=== PATIENT | female | born 1955 | race Caucasian/White ===

== ENCOUNTER 2019-04-22 10:52 | Outpatient (CLI) | payer OTHER, SELFPAY ==
[2019-04-22 11:22] LABS: Hematocrit 40.8 % (37.0-47.0); Hemoglobin 12.6 g/dL (12.0-15.0); Mean Corpuscular HGB Conc 30.9 g/dl (32-36); Mean Corpuscular Hemoglobin 28.4 pg (26-34); Mean Corpuscular Volume 91.9 fl (80-100); Platelet Count Result 180 k/mm3 (150-375); Red Blood Count 4.44 M/mm3 (4.2-5.4); Red Cell Distribution Width 13.9 % (11.5-14.5); White Blood Count 6.4 K/mm3 (4.5-10.0)
[2019-04-22 11:33] LABS: Alanine Aminotransferase 23 U/L (4-35); Albumin Level 4.2 g/dL (3.5-5.1); Alkaline Phosphatase 150 U/L (38-126); Aspartate Amino Transferase 30 U/L (14-36); Bilirubin,Total 0.9 mg/dL (0.2-1.3); Blood Urea Nitrogen 10 mg/dL (7-17); Calcium 9.5 mg/dL (8.4-10.2); Carbon Dioxide 31 mmol/L (22-30); Chloride 102 mmol/L (98-107); Cholesterol 129 mg/dL (0-200); Estimated Glomerular Filt Rate 56; Glucose 107 mg/dL (65-105); HDL Direct 60 mg/dL; Potassium 4.4 mmol/L (3.4-5.0); Sodium 140 mmol/L (137-145); Triglycerides 42 mg/dL (<150)
[2019-04-22 11:44] LABS: LDL Cholesterol Direct 57 mg/dL
== END 2019-04-22 10:53 | disposition home or self-care (01) ==
PROVIDERS: PCP Family Medicine; Visit Provider Nurse Practitioner Family
DX: E78.5 Hyperlipidemia, unspecified (principal); I10 Essential (primary) hypertension
CPT/HCPCS: 36415; 80053; 80061; 85027

== ENCOUNTER 2019-04-23 07:23 | Outpatient (CLI) | payer OTHER, SELFPAY ==
[2019-04-27 05:08] LABS: GGT 11 U/L (3-65)
== END 2019-04-23 07:24 | disposition home or self-care (01) ==
PROVIDERS: PCP Family Medicine; Visit Provider Nurse Practitioner Family
DX: R74.8 Abnormal levels of other serum enzymes (principal)
CPT/HCPCS: 36415; 82977

== ENCOUNTER 2019-09-21 14:03 | Outpatient (CLI) | payer OTHER, SELFPAY ==
--- NOTE | ~2019-09-21 | MM_ITS ---
EXAMINATION: MM screening buddy BI w deonna HISTORY: Screening mammogram TECHNIQUE: Craniocaudal and mediolateral oblique 3-D tomosynthesis images were obtained and synthetic 2-D images were generated. CAD analysis was submitted and interpreted. COMPARISON: Comparison to multiple prior studies sequentially, with oldest reviewed study dated 07/2014. BREAST PARENCHYMAL COMPOSITION: The breasts are heterogeneously dense, which may obscure small masses . FINDINGS: There is no evidence of suspicious mass, calcification, or architectural distortion to sugg est malignancy in either breast. There has been no suspicious interval change. IMPRESSION: 1. No mammographic evidence of malignancy. 2. Recommend routine screening mammography in one year. BI-RADS Category 1: Negative Reviewed, dictated and finalized at location A.
== END 2019-09-21 14:04 | disposition home or self-care (01) ==
PROVIDERS: PCP Family Medicine; Visit Provider Family Medicine
DX: Z12.31 Encounter for screening mammogram for malignant neoplasm of breast (principal)
CPT/HCPCS: 77063; 77067

== ENCOUNTER 2019-10-20 15:45 | Outpatient (CLI) | payer OTHER, SELFPAY ==
[2019-10-20 16:06] LABS: Basophils Absolute Auto 0.1 K/mm3 (0.0-0.1); Eosinophils Absolute Auto 0.6 K/mm3 (0-0.3); Eosinophils Percent Auto 8.1 % (0-4.4); Hematocrit 37.8 % (37.0-47.0); Hemoglobin 11.7 g/dL (12.0-15.0); Immature Granulocyte Absolute 0.01 K/mm3 (0.00-0.031); Immature Granulocyte Percent A 0.1 % (0-0.5); Lymphocytes Absolute Auto 2.43 K/mm3 (0.9-3.2); Lymphocytes Percent Auto 35.8 % (18.3-44.2); Mean Corpuscular Hemoglobin 28.8 pg (26-34); Mean Corpuscular Volume 93.1 fl (80-100); Mean Platelet Volume 11.1 fl (7.4-10.4); Monocytes Absolute Auto 0.6 K/mm3 (0.1-0.6); Monocytes Percent Auto 8.7 % (2.6-8.5); Neutrophils Absolute Auto 3.1 K/mm3 (1.3-6.7); Neutrophils Percent Auto 46.3 % (45.5-73.1); Platelet Count Result 223 k/mm3 (150-375); Red Blood Count 4.06 M/mm3 (4.2-5.4); Red Cell Distribution Width 14.3 % (11.5-14.5); White Blood Count 6.8 K/mm3 (4.5-10.0)
[2019-10-20 16:17] LABS: Alanine Aminotransferase 20 U/L (4-35); Albumin Level 4.1 g/dL (3.5-5.1); Alkaline Phosphatase 142 U/L (38-126); Anion Gap 8.9 mmol/L (7-16); Aspartate Amino Transferase 26 U/L (14-36); Bilirubin,Total 0.5 mg/dL (0.2-1.3); Blood Urea Nitrogen 16 mg/dL (7-17); Calcium 8.9 mg/dL (8.4-10.2); Carbon Dioxide 30 mmol/L (22-30); Chloride 105 mmol/L (98-107); Cholesterol 133 mg/dL (0-200); Estimated Glomerular Filt Rate > 60; Glucose 111 mg/dL (65-105); HDL Direct 58 mg/dL; Potassium 3.9 mmol/L (3.4-5.0); Sodium 140 mmol/L (137-145); Triglycerides 82 mg/dL (<150)
[2019-10-20 16:28] LABS: LDL Cholesterol Direct 60 mg/dL
[2019-10-20 17:29] LABS: Vitamin D 25 Hydroxy 53.2 ng/mL
[2019-10-20 19:11] LABS: Hemoglobin A1C 5.3 % (<5.7)
== END 2019-10-20 15:46 | disposition home or self-care (01) ==
PROVIDERS: PCP Family Medicine; Visit Provider Nurse Practitioner
DX: I10 Essential (primary) hypertension (principal); R73.9 Hyperglycemia, unspecified; E55.9 Vitamin D deficiency, unspecified
CPT/HCPCS: 36415; 80053; 80061; 82306; 83036; 85025

== ENCOUNTER 2020-04-11 09:39 | Outpatient (CLI) | payer OTHER, SELFPAY ==
[2020-04-11 10:30] LABS: Alanine Aminotransferase 24 U/L (4-35); Albumin Level 4.3 g/dL (3.5-5.1); Alkaline Phosphatase 149 U/L (38-126); Anion Gap 4 mmol/L (8-16); Aspartate Amino Transferase 33 U/L (14-36); Bilirubin,Total 1.1 mg/dL (0.2-1.3); Blood Urea Nitrogen 12 mg/dL (7-17); Calcium 9.5 mg/dL (8.4-10.2); Carbon Dioxide 33 mmol/L (22-30); Chloride 103 mmol/L (98-107); Cholesterol 156 mg/dL (0-200); Estimated Glomerular Filt Rate 56; Glucose 121 mg/dL (65-105); HDL Direct 60 mg/dL; Potassium 4.3 mmol/L (3.4-5.0); Sodium 140 mmol/L (137-145); Triglycerides 74 mg/dL (<150)
[2020-04-11 10:41] LABS: LDL Cholesterol Direct 65 mg/dL
[2020-04-11 10:48] LABS: Hemoglobin A1C 5.3 % (<5.7)
== END 2020-04-11 09:40 | disposition home or self-care (01) ==
PROVIDERS: PCP Nurse Practitioner Family; Visit Provider Nurse Practitioner Family
DX: R73.03 Prediabetes (principal); I10 Essential (primary) hypertension; E78.5 Hyperlipidemia, unspecified
CPT/HCPCS: 36415; 80053; 80061; 83036

== ENCOUNTER 2020-04-17 08:21 | Outpatient (CLI) | payer OTHER, SELFPAY ==
--- NOTE | ~2020-04-17 | US_ITS ---
EXAMINATION: US art doppler w press LE BI DATE: 04/17/2020 09:18 INDICATION: Hypertension presenting with decreased pulses in the lower limbs. TECHNIQUE: Segmental pressures and plethysmographic and Doppler waveforms of the brachial and lower e xtremity arteries were obtained. COMPARISON: None. FINDINGS: Right and left brachial artery pressures of 115 mm Hg and 114 mm Hg, respectively, are concordant (no rmal difference <= 30 mmHg). The right and left high-thigh pressure indices are 1.75 and 1.66, respec tively (normal > 1.2). The right ankle-brachial index (WERO) is 1.24 (normal >= 0.9-1). The right great toe-brachial index (T BI) is 0.63 (normal >= 0.6-0.8). The right lower extremity segmental pressure gradients are mildly in creased between the right dorsalis pedis artery and the right [id number] popliteal artery as well as the right posterior tibial artery (normal gradients <= 20-30 mmHg between adjacent levels on the same leg or the same levels on the two legs). Arterial waveforms are triphasic at the right common fe moral and superficial femoral arteries and biphasic at the right popliteal, posterior tibial and dors darline pedis arteries with brisk systolic upstrokes throughout. The left WERO is 1.27. The left TBI is 0.76. The left lower extremity segmental pressure gradients are normal. Arterial waveforms are triphasic at the left common femoral, superficial femoral, popliteal and posterior tibial arteries and biphasic at the left dorsalis pedis artery with brisk systolic upst rokes throughout. IMPRESSION: 1. Normal WERO's and TBI's bilaterally. No significant arterial occlusive disease. Reviewed, dictated and finalized at location B. [employer] IMPRESSION: 1. Normal WERO's and TBI's bilaterally. No significant arterial occlusive diseas e.
== END 2020-04-17 08:22 | disposition home or self-care (01) ==
LOC: ANHIMG 08:26
PROVIDERS: PCP Nurse Practitioner Family; Visit Provider Nurse Practitioner Family
DX: R09.89 Other specified symptoms and signs involving the circulatory and respiratory systems (principal)
CPT/HCPCS: 93923

== ENCOUNTER 2020-10-10 08:44 | Outpatient (CLI) | payer OTHER, SELFPAY ==
[2020-10-10 09:04] LABS: Basophils Absolute Auto 0.1 K/mm3 (0.0-0.1); Basophils Percent Auto 0.7 % (0.2-1.2); Eosinophils Absolute Auto 0.4 K/mm3 (0-0.3); Eosinophils Percent Auto 6.4 % (0-4.4); Hematocrit 38.2 % (37.0-47.0); Hemoglobin 11.5 g/dL (12.0-15.0); Immature Granulocyte Absolute 0.01 K/mm3 (0.00-0.031); Immature Granulocyte Percent A 0.1 % (0-0.5); Lymphocytes Absolute Auto 1.97 K/mm3 (0.9-3.2); Lymphocytes Percent Auto 28.6 % (18.3-44.2); Mean Corpuscular HGB Conc 30.1 g/dl (32-36); Mean Corpuscular Hemoglobin 26.8 pg (26-34); Mean Platelet Volume 10.9 fl (7.4-10.4); Monocytes Absolute Auto 0.7 K/mm3 (0.1-0.6); Monocytes Percent Auto 9.9 % (2.6-8.5); Neutrophils Absolute Auto 3.8 K/mm3 (1.3-6.7); Neutrophils Percent Auto 54.3 % (45.5-73.1); Platelet Count Result 219 k/mm3 (150-375); Red Blood Count 4.29 M/mm3 (4.2-5.4); White Blood Count 6.9 K/mm3 (4.5-10.0)
[2020-10-10 09:15] LABS: Alanine Aminotransferase 19 U/L (4-35); Albumin Level 4.3 g/dL (3.5-5.1); Alkaline Phosphatase 125 U/L (38-126); Anion Gap 6 mmol/L (8-16); Aspartate Amino Transferase 26 U/L (14-36); Bilirubin,Total 0.7 mg/dL (0.2-1.3); Blood Urea Nitrogen 13 mg/dL (7-17); Calcium 9.8 mg/dL (8.4-10.2); Carbon Dioxide 30 mmol/L (22-30); Chloride 105 mmol/L (98-107); Cholesterol 141 mg/dL (0-200); Estimated Glomerular Filt Rate 56; Glucose 106 mg/dL (65-110); HDL Direct 56 mg/dL; Potassium 4.8 mmol/L (3.4-5.0); Sodium 141 mmol/L (137-145); Triglycerides 68 mg/dL (<150)
[2020-10-10 09:26] LABS: LDL Cholesterol Direct 54 mg/dL
== END 2020-10-10 08:45 | disposition home or self-care (01) ==
PROVIDERS: PCP Nurse Practitioner Family; Visit Provider Nurse Practitioner Family
DX: I10 Essential (primary) hypertension (principal); E78.5 Hyperlipidemia, unspecified
CPT/HCPCS: 36415; 80053; 80061; 85025

== ENCOUNTER 2020-10-24 08:08 | Outpatient (CLI) | payer OTHER, SELFPAY ==
[2020-10-24 09:16] LABS: Iron 83 ug/dL (37-170)
[2020-10-24 09:24] LABS: Percent Iron Saturation 19 % (20-50)
[2020-10-24 09:51] LABS: Ferritin 8.54 ng/mL (11.1-264)
== END 2020-10-24 08:09 | disposition home or self-care (01) ==
PROVIDERS: PCP Nurse Practitioner Family; Visit Provider Nurse Practitioner Family
DX: D64.9 Anemia, unspecified (principal)
CPT/HCPCS: 36415; 82728; 83540; 83550

== ENCOUNTER 2020-12-07 08:07 | Outpatient (CLI) | payer OTHER, SELFPAY ==
--- NOTE | ~2020-12-07 | DEXA_ITS ---
Bone Density Report Name: Laverne Garcia Age: 65 Sex: Female Ethnicity: White Date of : 1955 Indication: postmenopausal; height loss; hysterectomy; Referring Provider: Smitha Miller Study: Bone densitometry was performed. Exam Date: December 07, 2020 Accession number: [id number] Bone Density: Region BMD T-score Z-score Classification AP Spine (L1, L2) 1.191 1.9 3.5 Normal Femoral Neck (Left) 0.779 -0.6 0.8 Normal Total Hip (Left) 0.992 0.4 1.5 Normal Total Hip Bilateral Avg 0.956 0.1 1.2 Normal Femoral Neck (Right) 0.734 -1.0 0.4 Normal Total Hip (Right) 0.919 -0.2 0.9 Normal World Health Organization criteria for BMD impression classify patients as: Normal (T-score at or above -1.0), Osteopenia (T-score between -1.0 and -2.5), or Osteoporosis (T-score at or below -2.5). 10-year Fracture Risk: FRAX not reported because: All T-scores for Spine Total, Hip Total, Femoral Neck at or above -1.0 Clinical Information Provided by Patient: Has the following medical conditions: Hysterectomy Patient maximum height was 70 Menopause Age: 43 Does not regularly consume dairy products Drinks caffeinated beverages Onset of menses at age 14 Number of children 2 Impression: The patient has normal bone mass. Discussion: BONE DENSITY IS ABOVE THE MINIMUM DESIRABLE LEVEL AT ALL SKELETAL SITES TESTED. This patient?s bone mineral density is above the minimum desirable level (T-score -1.0 or better) at all sites measured. The patient should follow a healthful lifestyle (good nutrition with adequate calcium and vitamin D, and appropriate weight-bearing exercise). Follow-Up: Consider repeating this study in 5 years or sooner if there is some new clinical indication. Reported by: JULITA on 12/07/2020 8:35:00 AM. Reviewed, dictated and finalized at location APatrice DEUTSCH
--- NOTE | ~2020-12-07 | MM_ITS ---
EXAMINATION: MM screening buddy BI w deonna HISTORY: Screening TECHNIQUE: Craniocaudal and mediolateral oblique 3-D tomosynthesis images were obtained and synthetic 2-D images were generated. CAD analysis was submitted and interpreted. COMPARISON: Comparison to multiple prior studies sequentially, with oldest reviewed study dated 09/2016. BREAST PARENCHYMAL COMPOSITION: The breasts are heterogeneously dense, which may obscure small masses . FINDINGS: There is no evidence of suspicious mass, calcification, or architectural distortion to sugg est malignancy in either breast. There has been no suspicious interval change. IMPRESSION: 1. No mammographic evidence of malignancy. 2. Recommend routine screening mammography in one year. BI-RADS Category 1: Negative Reviewed, dictated and finalized at location A.
== END 2020-12-07 08:08 | disposition home or self-care (01) ==
LOC: ANHIMG 08:08
PROVIDERS: PCP Nurse Practitioner Family; Visit Provider Nurse Practitioner Family
DX: Z12.31 Encounter for screening mammogram for malignant neoplasm of breast (principal); Z78.0 Asymptomatic menopausal state
CPT/HCPCS: 77063; 77067; 77080

== ENCOUNTER 2021-02-06 01:36 | Day surgery (SDC) | payer OTHER, SELFPAY ==
[2021-01-24 09:59] VITALS: BMI 27.3
[2021-02-06 07:42] VITALS: BP 129/67; PULSE 72; RESP 18; TEMP 36.4; O2SAT 99
--- NOTE | 2021-02-06 07:52 | WPDGICN ---
Assessment and Plan Assessment and plan (1) Iron deficiency: Code(s): E61.1 - Iron deficiency Status: Acute Assessment and Plan: Patient with iron deficiency. He she has had no evidence for GI blood loss. Plan is for colonoscopy an EGD to assess more thoroughly. It is possible iron deficiency may be related to iron malabsorption associated with chronic PPI use. Perhaps iron replacement would be best initially. (2) Left sided abdominal pain: Code(s): R10.9 - Unspecified abdominal pain Status: Acute Assessment and Plan: Left side abdominal pain has improved. May be related to iron use on this basis. She does have a history of acid reflux. Will evaluate at time of EGD. (3) GERD (gastroesophageal reflux disease): Code(s): K21.9 - Gastro-esophageal reflux disease without esophagitis Status: Acute Assessment and Plan: Patient has chronic GE reflux disease plan is for EGD to assess whether PPI use is healed any potential esophagitis. (4) Encounter for screening colonoscopy: Code(s): Z12.11 - Encounter for screening for malignant neoplasm of colon Status: Acute Assessment and Plan: It has been 10 years since last colonoscopy. The patient is due for screening colonoscopy which will be performed today. GI Consult Note Consult date/time: 02/06/21 07:52 HPI: Laverne Garcia is a 65 year old female Presents for GI endoscopy. Patient recently found to have iron deficient see anemia. She denies any obvious bleeding. She was placed on iron replacement was some mild left upper quadrant abdominal discomfort. This is improved over recent weeks. Patient denies any obvious bleeding. Her appetite bowel movements have remained normal. Family history noncontributory. She has been treated for dyspepsia and acid reflux with omeprazole 20mg p.o. daily for many years. She states she had a screening colonoscopy 10 years ago. Family history noncontributory. Review of Systems Review of Systems: All systems reviewed & are unremarkable except as noted in HPI and below PMFSH Past Medical History Medical History (Updated 02/06/21 @ 07:54 by Willie Stuart MD) Anemia Encounter for screening mammogram for malignant neoplasm of breast Essential (primary) hypertension Hyperlipidemia Family History Family History Father Family history of heart disease in male family member before age 55 Other Family history of coronary artery disease Social History Social History Smoking status: Never smoker Alcohol intake: current Alcohol use details: socially Substance use: never Substance use type: does not use Living arrangements: alone Spiritual care concerns: No Meds Home Medications and Allergies Home Medications Medication Instructions Recorded Confirmed Type loratadine 10 mg tablet 10 mg PO DAILY 10/18/19 01/24/21 History multivitamin 1 tablet PO DAILY 10/18/19 01/24/21 History omega-3 fatty acids 1,000 mg 1,000 mg PO DAILY 10/18/19 01/24/21 History capsule atorvastatin 20 mg tablet 20 mg PO DAILY #90 tablet 10/10/20 01/24/21 Rx losartan 100 mg tablet 100 mg PO DAILY #90 tablet 10/10/20 01/24/21 Rx omeprazole 20 mg capsule,delayed See Rx Instructions .ROUTE 01/26/21 Rx release .COMPLEX #90 cap Allergies Allergy/AdvReac Type Severity Reaction Status Date / Time erythromycin base Allergy Mild Rash Verified 02/06/21 07:39 penicillin G Allergy Unknown Unknown Verified 02/06/21 07:39 Penicillins Allergy Unknown Rash Verified 02/06/21 07:39 Vital Signs Vital Signs - 24 hr 02/06/21 07:42 Temperature 97.6 F Pulse Rate 72 Respiratory Rate 18 Blood Pressure 129/67 Pulse Oximetry 99 Exam Narrative: physical exam reveals patient to be alert. Vital signs stable. HEENT exam is unremarkab
[2021-02-06] MEDS: LACTATED RINGERS 1,000 ML 150 ML IV CONT (07:54)
--- NOTE | 2021-02-06 08:27 | P.PNAN_ITS ---
Anes - Initial Pre Proc Eval Procedure: Operation Date: 02/06/21 09:00 Proposed Procedures p Esophagogastroduodenoscopy & Colonoscopy - Willie Stuart MD Date/Time: 02/06/21 08:27 Surgeon: Willie Stuart MD Pre Op Diagnosis: ROBY, GERD, Abdominal Pain Patient Data Age: 65 Gender: F Height: 1.78 m Weight: 88 kg Last Vital Signs Temp 97.6 F 02/06/21 07:42 Pulse 72 02/06/21 07:42 Resp 18 02/06/21 07:42 BP 129/67 02/06/21 07:42 Pulse Ox 99 02/06/21 07:42 Allergies Allergy/AdvReac Type Severity Reaction Status Date / Time erythromycin base Allergy Mild Rash Verified 02/06/21 07:39 penicillin G Allergy Unknown Unknown Verified 02/06/21 07:39 Penicillins Allergy Unknown Rash Verified 02/06/21 07:39 Home Medications Medication Instructions Recorded Confirmed Type loratadine 10 mg tablet 10 mg PO DAILY 10/18/19 01/24/21 History multivitamin 1 tablet PO DAILY 10/18/19 01/24/21 History omega-3 fatty acids 1,000 mg 1,000 mg PO DAILY 10/18/19 01/24/21 History capsule atorvastatin 20 mg tablet 20 mg PO DAILY #90 tablet 10/10/20 01/24/21 Rx losartan 100 mg tablet 100 mg PO DAILY #90 tablet 10/10/20 01/24/21 Rx omeprazole 20 mg capsule,delayed See Rx Instructions .ROUTE 01/26/21 02/06/21 Rx release .COMPLEX #90 cap Patient hx anesthesia problems: none Family hx anesthesia problems: none Results Review: All pre-operative results and documents have been reviewed as part of the pre-operative evaluation. COUNT INCLUDES [facility] Past Medical History Medical History (Updated 02/06/21 @ 07:54 by Willie Stuart MD) Anemia Encounter for screening mammogram for malignant neoplasm of breast Essential (primary) hypertension Hyperlipidemia Family History Family History Father Family history of heart disease in male family member before age 55 Other Family history of coronary artery disease Social History Social History Smoking status: Never smoker Alcohol intake: current Alcohol use details: socially Substance use: never Substance use type: does not use Living arrangements: alone Spiritual care concerns: No Anes - Eval Final PreProcedure Day of Procedure 02/06/21 08:27 Patient weight: overweight Heart: regular rate and rhythm Lungs: clear to auscultation Airway: Mallampati scale class II Neurological: alert and oriented Last oral intake: >/= 8 hours ASA classification: III Emergent: no Anesthetic plan: proceed Anesthesia type and monitoring: general GIVS and standard monitoring Results Review: All pre-operative results and documents have been reviewed as part of the pre-operative evaluation. Informed Consent: The patient's anesthetic plan and its attendant risks and benefits were discussed with the patient/family/POA. Questions were solicited and answers provided to the satisfaction of the patient/family/POA.
--- NOTE | 2021-02-06 09:07 | SUR.OPER ---
egd finish time 857, colonoscopy start time 904
[2021-02-06 09:19] VITALS: BP 109/62; PULSE 64; RESP 20; O2SAT 100
[2021-02-06 09:29] VITALS: BP 126/68; PULSE 67; RESP 23; O2SAT 100
[2021-02-06 09:39] VITALS: BP 131/74; PULSE 60; RESP 21; O2SAT 100
== END 2021-02-06 09:53 | disposition home or self-care (01) ==
PROVIDERS: PCP Nurse Practitioner Family; Visit Provider Internal Medicine Gastroenterology
PROC: 0DJ08ZZ Inspection of Upper Intestinal Tract, Via Natural or Artificial Opening Endoscopic (ICD-10-PCS; CPT 43235; principal; 2021-02-06 09:00)
DX: Z12.11 Encounter for screening for malignant neoplasm of colon (principal); D50.9 Iron deficiency anemia, unspecified; D12.2 Benign neoplasm of ascending colon; K64.8 Other hemorrhoids; K29.80 Duodenitis without bleeding; K31.7 Polyp of stomach and duodenum; K21.9 Gastro-esophageal reflux disease without esophagitis; I10 Essential (primary) hypertension; E78.5 Hyperlipidemia, unspecified
CPT/HCPCS: 45385; 43251; 43239; 87081; 88305; J2704; J7120

== ENCOUNTER 2021-03-18 13:00 | Emergency (ER) | payer OTHER, SELFPAY ==
[2021-03-18 13:07] VITALS: BP 111/52; PULSE 64; RESP 16; TEMP 36.7; O2SAT 100
--- NOTE | 2021-03-18 13:32 | ED.URI ---
HPI - URI/Sore Throat General Chief Complaint: Upper Respiratory Infection Stated Complaint: sinus issues History of Present Illness HPI Narrative: This is a 65-year-old female presented to urgent care with complaints pain to her frontal area, nasal congestion with greenish mucus, and a fever of 100 started on Friday. Patient notes that she takes Claritin on a daily basis for her sinuses she also took some cold and cough medicine 1 time overnight and took Tylenol for her one-time fever. She has not done anything else to relieve her symptoms. Patient also notes occasional shortness of breath. The patient denies , CP, palpitation, extremity numbness, lightheadedness, dizziness, constipation, diarrhea, chills, or fever. Related Data Home Medications Medication Instructions Recorded Confirmed loratadine 10 mg tablet 10 mg PO DAILY 10/18/19 03/18/21 multivitamin 1 tablet PO DAILY 10/18/19 03/18/21 omega-3 fatty acids 1,000 mg 1,000 mg PO DAILY 10/18/19 03/18/21 capsule Allergies Allergy/AdvReac Type Severity Reaction Status Date / Time erythromycin base Allergy Mild Rash Verified 03/18/21 13:15 penicillin G Allergy Unknown Unknown Verified 03/18/21 13:15 Penicillins Allergy Unknown Rash Verified 03/18/21 13:15 Review of Systems Review of Systems: A 14 organ system Review of Systems was performed and pertinent positives included in the HPI, otherwise remaining ROS is negative. [facility] Past Medical History Medical History Anemia Encounter for screening mammogram for malignant neoplasm of breast Essential (primary) hypertension Hyperlipidemia Family History Family History Father Family history of heart disease in male family member before age 55 Other Family history of coronary artery disease Social History Social History Smoking status: Never smoker Alcohol intake: current Alcohol use details: socially Substance use: never Substance use type: does not use Spiritual care concerns: No Exam Narrative: GENERAL: This is a well-nourished, well-developed patient, in no apparent distress. HEAD: normocephalic, atraumatic. EYES: PERRL. Sclera clear/white. Vision is grossly intact. EARS: External ears normal, auditory canals clear and without drainage, TMs normal without perforation. Hearing grossly intact. NOSE: External nose normal with no obvious nasal discharge, nares without redness, no rhinorrhea. Sounded congested THROAT: Mucous membranes moist, posterior pharynx slight erythema. NECK: Neck supple, non-tender without lymphadenopathy, masses or thyromegaly. CARDIOVASCULAR: Regular rate and rhythm without murmurs, gallops, or rubs. RESPIRATORY: Clear to auscultation. Breath sounds equal bilaterally. No wheezes, rales, or rhonchi. GASTROINTESTINAL: Abdomen soft, non-tender, nondistended. Bowel sounds are active. No hepato-splenomegaly, or palpable masses. No guarding. SKIN: warm, intact with no suspicious lesions or rash, good texture and turgor. NEURO: awake, alert, and oriented to person, place and time. There were no obvious focal neurologic abnormalities. Steady gait EXTREMITIES: Normal range of motion. No edema. No calf tenderness. Negative Homans sign bilaterally. BACK: Nontender without deformity or crepitance. No flank tenderness. Course Course Emergency Course: Patient will be treated for sin with doxycycline twice daily x7 days, guaifenesin, Flonase Vital Signs Vital signs: Vital Signs Temperature 98.1 F 03/18/21 13:07 Pulse Rate 64 03/18/21 13:07 Respiratory Rate 16 03/18/21 13:07 Blood Pressure 111/52 L 03/18/21 13:07 Pulse Oximetry 100 03/18/21 13:07 Temperature 98.1 F 03/18/21 13:07 Pulse Rate 64 03/18/21 13:07 Respiratory Rate 16 03/18/21 13:07 Blood Pressure 111/52 L 03/18/21 13
== END 2021-03-18 13:53 | disposition home or self-care (01) ==
PROVIDERS: Emergency Provider Nurse Practitioner; PCP Nurse Practitioner Family
DX: J01.00 Acute maxillary sinusitis, unspecified (principal); I10 Essential (primary) hypertension; E78.5 Hyperlipidemia, unspecified
CPT/HCPCS: 99213; G0463

== ENCOUNTER 2021-10-22 09:21 | Outpatient (CLI) | payer OTHER, SELFPAY ==
[2021-10-22 18:48] LABS: Basophils Absolute Auto 0.1 K/mm3 (0.0-0.1); Basophils Percent Auto 0.8 % (0.2-1.2); Eosinophils Absolute Auto 0.3 K/mm3 (0-0.3); Eosinophils Percent Auto 5.5 % (0-4.4); Hematocrit 42.3 % (37.0-47.0); Hemoglobin 12.8 g/dL (12.0-15.0); Immature Granulocyte Absolute 0.01 K/mm3 (0.00-0.031); Immature Granulocyte Percent A 0.2 % (0-0.5); Lymphocytes Percent Auto 32.5 % (18.3-44.2); Mean Corpuscular HGB Conc 30.3 g/dl (32-36); Mean Corpuscular Hemoglobin 28.6 pg (26-34); Mean Corpuscular Volume 94.4 fl (80-100); Mean Platelet Volume 12.1 fl (7.4-10.4); Monocytes Absolute Auto 0.6 K/mm3 (0.1-0.6); Monocytes Percent Auto 10.1 % (2.6-8.5); Neutrophils Absolute Auto 3.1 K/mm3 (1.3-6.7); Neutrophils Percent Auto 50.9 % (45.5-73.1); Platelet Count Result 183 k/mm3 (150-375); Red Blood Count 4.48 M/mm3 (4.2-5.4); White Blood Count 6.2 K/mm3 (4.5-10.0)
[2021-10-22 19:01] LABS: Alanine Aminotransferase 22 U/L (6-35); Albumin Level 4.1 g/dL (3.5-5.1); Alkaline Phosphatase 132 U/L (38-126); Anion Gap 8 mmol/L (8-16); Aspartate Amino Transferase 38 U/L (14-36); Bilirubin,Total 0.6 mg/dL (0.2-1.3); Blood Urea Nitrogen 15 mg/dL (7-17); Calcium 9.4 mg/dL (8.4-10.2); Carbon Dioxide 30 mmol/L (22-30); Chloride 102 mmol/L (98-107); Cholesterol 136 mg/dL (0-200); Estimated Glomerular Filt Rate > 60; Glucose 111 mg/dL (65-110); HDL Direct 56 mg/dL; Potassium 4.7 mmol/L (3.4-5.0); Sodium 140 mmol/L (137-145); Triglycerides 46 mg/dL (<150)
[2021-10-22 19:12] LABS: LDL Cholesterol Direct 50 mg/dL
[2021-10-22 22:15] LABS: Vitamin D 25 Hydroxy 49.2 ng/mL
== END 2021-10-22 09:22 | disposition home or self-care (01) ==
LOC: ANHGOSHLAB 09:22
PROVIDERS: PCP Family Medicine; Visit Provider Nurse Practitioner Family
DX: Z00.00 Encounter for general adult medical examination without abnormal findings (principal); I10 Essential (primary) hypertension; E78.5 Hyperlipidemia, unspecified; E55.9 Vitamin D deficiency, unspecified
CPT/HCPCS: 36415; 80053; 80061; 82306; 84443; 85025

== ENCOUNTER 2021-11-21 08:21 | Outpatient (CLI) | payer OTHER, SELFPAY ==
--- NOTE | 2021-12-17 09:20 | WPDHOMESLEEP ---
Sleep Study - Home Unattended Date of Study: 11/21/21 Ordering Provider: Smitha Miller NP Interpreting Provider: Mary Kate Barrientos MD Home Sleep Study Type: Malika MORALES Height: 1.78 m Weight: 86.183 kg Body Mass Index: 27.2 Neck Circumference (inches): 14 [place]: 14 Reason for Sleep Study Excessive daytime sleepiness Sleep History Laverne Garcia is a [id number] female with E daytime sleepiness. She often falls asleep for just a few moments. She wakes up frequently during the night. She does not awaken from sleep feeling short of breath. She rarely awakens at night with heartburn, belching or coughing. She lives alone but she does not wake herself up gasping. She is not sure if she snores. She occasionally has trouble sleeping with a cold. She does not sweat excessively at night or have her heart pounding or beating irregularly at night. She frequently falls asleep during the day and falls asleep involuntarily, occasionally while driving. She does not have loss of muscle tone with strong emotion. She rarely has daytime difficulties due to excessive sleepiness. She rarely feels paralyzed on waking or falling asleep. She describes in her questionnaire that her forearm may feel numb but this sounds like as if she slept on it in a bad position. She rarely has vivid dreamlike scenes on awakening or falling asleep. She is afraid of accidentally falling asleep. She rarely remembers her dreams. She rarely has nightmares. She frequently has racing thoughts. She occasionally feels sad, depressed or anxious. She occasionally has muscular tension. She shakes year than she used to be in the past. She does not kick at night. She rarely has crawling and aching feelings in her legs. She occasionally has leg cramps at night. She does not have morning jaw pain. She frequently is bothered by pain there during the day but never awakened by pain at night. She constantly wakes up feeling stiff in the morning. She occasionally wakes up with sore achy muscles. She frequently wakes up with pain in the neck and spine. She has fatigue, headaches, memory problems and concentration difficulties. Normal bedtime is B 11:00 p.m. and midnight, uses a hot pack on her back to get to sleep or reads a book. Sometimes she does not awaken during the night. S it is 2 or 3 times per night. If she awakens during the night she rolls over and goes back to sleep. Sometimes she may get up and do something to become sleepy and then she returns to sleep. A normal wake up time is 6:00 a.m.. She has the same schedule on the weekends. She does not intentionally take naps in the afternoon or evening. She may feel improved after short naps. She is usually drowsy in the morning. Habits: Never smoked tobacco. Caffeine, on days that she works she drinks a qt of tea. She drinks less on the weekends. Alcohol 1 or 2 servings a day. No recreational drugs. [facility] Past Medical History Medical History Essential (primary) hypertension Essential tremor Hyperlipidemia Iron deficiency Family History Family History Father Family history of heart disease in male family member before age 55 Other Family history of coronary artery disease Social History Social History Smoking status: Never smoker Alcohol intake: current Alcohol use details: socially Substance use: never Substance use type: does not use Additional living arrangements comments: 2 children lives out side of home Additional occupation/education comments: [employer] Gender identity (if verbalized by the patient): Female Sexual Orientation (if Verbalized by the Patient): Straight or Heterosexual Spiritual care concerns: No Agree to blood products: Yes Medications Home Medications Medication
[2021-12-17 09:35] VITALS: BMI 27.2
== END 2021-11-22 11:49 | disposition home or self-care (01) ==
LOC: ANHCSM 08:23
PROVIDERS: PCP Family Medicine; Visit Provider Nurse Practitioner Family
DX: G47.10 Hypersomnia, unspecified (principal); R40.0 Somnolence
CPT/HCPCS: 95800

== ENCOUNTER 2022-02-06 07:22 | Outpatient (CLI) | payer OTHER, SELFPAY ==
[2022-03-05 14:52] VITALS: BMI 27.2
--- NOTE | 2022-03-05 14:52 | WPDSLEEPSTUD ---
Sleep Study Date of Study: 02/06/22 Ordering Provider: Tina Rico DO Interpreting Physician: Tina Rico DO Sleep Study Type: Polysomnogram Height: 1.78 m Weight: 86.183 kg Body Mass Index: 27.2 Neck Circumference (inches): 14 [place]: 14 Reason for Sleep Study Evaluation of daytime hypersomnia Sleep History Laverne Garcia is a 66-year-old female with daytime sleepiness.? She often falls asleep for just a few moments.? She wakes up frequently during the night.? She does not awaken from sleep feeling short of breath.? She rarely awakens at night with heartburn, belching or coughing.? She lives alone but she does not wake herself up gasping.? She is not sure if she snores.? She occasionally has trouble sleeping with a cold.? She does not sweat excessively at night or have her heart pounding or beating irregularly at night.? She frequently falls asleep during the day and falls asleep involuntarily, occasionally while driving.? She does not have loss of muscle tone with strong emotion.? She rarely has daytime difficulties due to excessive sleepiness.? She rarely feels paralyzed on waking or falling asleep.? She describes in her questionnaire that her forearm may feel numb but this sounds like as if she slept on it in a bad position.? She rarely has vivid dreamlike scenes on awakening or falling asleep.? She is afraid of accidentally falling asleep.? She rarely remembers her dreams.? She rarely has nightmares.? She frequently has racing thoughts.? She occasionally feels sad, depressed or anxious.? She occasionally has muscular tension.? She shakes year than she used to be in the past.? She does not kick at night.? She rarely has crawling and aching feelings in her legs.? She occasionally has leg cramps at night.? She does not have morning jaw pain.? She frequently is bothered by pain there during the day but never awakened by pain at night.? She constantly wakes up feeling stiff in the morning.? She occasionally wakes up with sore achy muscles.? She frequently wakes up with pain in the neck and spine.? She has fatigue, headaches, memory problems and concentration difficulties. Normal bedtime is B 11:00 p.m. and midnight, uses a hot pack on her back to get to sleep or reads a book.? Sometimes she does not awaken during the night. S it is 2 or 3 times per night.? If she awakens during the night she rolls over and goes back to sleep.? Sometimes she may get up and do something to become sleepy and then she returns to sleep.? A normal wake up time is 6:00 a.m..? She has the same schedule on the weekends.? She does not intentionally take naps in the afternoon or evening.? She may feel improved after short naps.? She is usually drowsy in the morning. Habits: Never smoked tobacco.? Caffeine, on days that she works she drinks a qt of tea.? She drinks less on the weekends.? Alcohol 1 or 2 servings a day.? No recreational drugs. [facility] Past Medical History Medical History Essential (primary) hypertension Essential tremor Hyperlipidemia Iron deficiency Family History Family History Father Family history of heart disease in male family member before age 55 Other Family history of coronary artery disease Social History Social History Smoking status: Never smoker Alcohol intake: current Alcohol use details: socially Substance use: never Substance use type: does not use Additional living arrangements comments: 2 children lives out side of home Additional occupation/education comments: [employer] Gender identity (if verbalized by the patient): Female Sexual Orientation (if Verbalized by the Patient): Straight or Heterosexual Spiritual care concerns: No Agree to blood products: Yes Medications Home Medications Medication
--- NOTE | 2022-03-05 15:15 | WPDSLEEPSTUD ---
Sleep Study Date of Study: 02/06/22 Ordering Provider: Tina Rico DO Interpreting Physician: Tina Rico DO Sleep Study Type: Multiple Sleep Latency Test Height: 1.78 m Weight: 86.183 kg Body Mass Index: 27.2 Neck Circumference (inches): 14 Elizabeth: 14 Reason for Sleep Study Excessive daytime sleepiness Sleep History Please see sleep history from polysomnogram report. [facility] Past Medical History Medical History Essential (primary) hypertension Essential tremor Hyperlipidemia Iron deficiency Family History Family History Father Family history of heart disease in male family member before age 55 Other Family history of coronary artery disease Social History Social History Smoking status: Never smoker Alcohol intake: current Alcohol use details: socially Substance use: never Substance use type: does not use Additional living arrangements comments: 2 children lives out side of home Additional occupation/education comments: [employer] Gender identity (if verbalized by the patient): Female Sexual Orientation (if Verbalized by the Patient): Straight or Heterosexual Spiritual care concerns: No Agree to blood products: Yes Medications Home Medications Medication Instructions Recorded Confirmed Type loratadine 10 mg tablet (Claritin) 10 mg PO DAILY 10/18/19 01/06/22 History multivitamin 1 tablet PO DAILY 10/18/19 01/06/22 History omega-3 fatty acids 1,000 mg 1,000 mg PO DAILY 10/18/19 01/06/22 History capsule (Fish Oil Concentrate) atorvastatin 20 mg tablet (Lipitor) 20 mg PO DAILY #90 tabs 01/04/22 Rx Sleep Procedure The recording montage for the MSLT includes central EEG (C3-A2, C4-A1) and occipital (O1-A2, O2-A1) derivations, left and right eye electrooculograms (EOGs), mental/submental electromyogram (EMG), and electrocardiogram (EKG). Nap 1: Sleep latency was 14.4 minutes and total sleep time was 11 minutes. No SOREM. Nap 2: Sleep latency was 14.5 minutes and total sleep time was 11 minutes. The patient had 1 SOREM at 12.5 minutes. Nap 3: Sleep latency was 19.8 minutes and total sleep time was 15 minutes. No SOREM. Nap 4: The patient did not fall asleep within 20 minutes. Nap 5: Sleep latency was 17.5 minutes and total sleep time was 15 minutes. No SOREM The mean sleep latency is 17.3 minutes. The patient slept on 4 naps. There was 1 SOREM. Sleep Architecture N/A Respiratory Analysis N/A Arousals N/A Periodic Limb Movements N/A Oximetry Data N/A Snoring Profile N/A Cardiac Profile N/A EEG Profile EEG was normal and showed no signs of seizure activity. Assessment and Plan Assessment and Plan (1) Hypersomnolence: Code(s): G47.10 - Hypersomnia, unspecified Status: Acute Assessment and Plan: The patient had a mean sleep latency of 17.3 minutes with 1 SOREM. On her PSG from the previous night, she had a sleep latency of 11.6 minutes with no SOREM. The patient does not meet the criteria for narcolepsy. If the patient has daytime hypersomnia that is interfering with activities of daily living, I recommend having the patient do the PHQ-9 and BRITTANY-7 to evaluate for mood disorders. If both are negative, you could consider modafinil as a wake-promoting agent. Data The data obtained during this sleep study is adequate for interpretation. Certification This sleep study has been reviewed by a board certified sleep medicine physician.
[2022-03-05 15:32] VITALS: BMI 27.2
== END 2022-02-07 16:44 | disposition home or self-care (01) ==
PROVIDERS: PCP Family Medicine; Visit Provider Family Medicine
DX: G47.10 Hypersomnia, unspecified (principal)
CPT/HCPCS: 95805; 95810

== ENCOUNTER 2022-03-26 08:09 | Outpatient (CLI) | payer OTHER, SELFPAY ==
--- NOTE | ~2022-03-26 | MM_ITS ---
EXAMINATION: MM screening [facility] BI w deonna HISTORY: Screening mammogram TECHNIQUE: Craniocaudal and mediolateral oblique 3-D tomosynthesis images were obtained and synthetic 2-D images were generated. CAD analysis was submitted and interpreted. COMPARISON: 12/07/2020, 09/21/2019, 06/30/2018, 06/18/2018 BREAST PARENCHYMAL COMPOSITION: The breasts are heterogeneously dense, which may obscure small masses . FINDINGS: No suspicious mass, calcification, or architectural distortion are identified in either mami ast to suggest malignancy. There has been no suspicious interval change. IMPRESSION: 1. No mammographic evidence of malignancy. 2. Recommend routine screening mammography in one year. BI-RADS Category 1: Negative Reviewed, dictated and finalized at location A. OND MILL OPERATOR
== END 2022-03-26 08:10 | disposition home or self-care (01) ==
PROVIDERS: PCP Family Medicine; Visit Provider Nurse Practitioner Family
DX: Z12.31 Encounter for screening mammogram for malignant neoplasm of breast (principal)
CPT/HCPCS: 77063; 77067

== ENCOUNTER 2022-09-30 09:37 | Outpatient (CLI) | payer OTHER, SELFPAY ==
--- NOTE | 2022-09-30 10:18 | EST_ITS ---
Patient Info Name: Laverne Garcia Age: 66 years : 1955 Gender: Female Ht: 69 in Wt: 190 lbs BSA: 2.07 m2 HR: 63 bpm BP: 122 / 64 mmHg Heart Rhythm: Sinus Rhythm Exam Date: 09/30/2022 10:26 AM Exam Location: [facility] Stress Patient Status: Outpatient Admit Date: 09/30/2022 Staff Ordering Physician: Paul, Smitha Staples NP Attending Provider: Paul, Smitha Staples NP Exercise Technologist: Emilia Thomas CT Exercise Physician: Travis Lindsey DO Exam Type: CA stress test treadmill Study Info Indications R07.89 - Other chest pain A treadmill exercise stress test was performed. Summary 1. 1. Negative Goldy exercise stress test for ischemic ST changes by ECG criteria. 2. 2. Reduced functional capacity, achieving 6 METs of workload. 3. 3. Appropriate HR response to exercise. 4. 4. Appropriate HR recovery at 1 minute post exercise. 5. 5. No imaging with stress testing. 6. 6. Patient informed of the above results. Protocol: Goldy Stress ECG Details Stage: REST Duration (min): 1 min : 42 sec Speed (mph): 0.0 Grade (%): 0 HR (bpm): 59 SBP (mmHg): 122 DBP (mmHg): 64 METS: --- Stage: REST Duration (min): 8 min : 21 sec Speed (mph): 0.0 Grade (%): 0 HR (bpm): 67 SBP (mmHg): 122 DBP (mmHg): 64 METS: --- Stage: STAGE 1 Duration (min): 1 min : 0 sec Speed (mph): 1.7 Grade (%): 10 HR (bpm): 110 SBP (mmHg): 122 DBP (mmHg): 64 METS: --- Stage: STAGE 1 Duration (min): 2 min : 0 sec Speed (mph): 1.7 Grade (%): 10 HR (bpm): 129 SBP (mmHg): 122 DBP (mmHg): 64 METS: --- Stage: STAGE 1 Duration (min): 3 min : 0 sec Speed (mph): 1.7 Grade (%): 10 HR (bpm): 136 SBP (mmHg): 189 DBP (mmHg): 52 METS: --- Stage: STAGE 2 Duration (min): 1 min : 0 sec Speed (mph): 2.5 Grade (%): 12 HR (bpm): 142 SBP (mmHg): 189 DBP (mmHg): 52 METS: --- Stage: STAGE 2 Duration (min): 1 min : 1 sec Speed (mph): 2.5 Grade (%): 12 HR (bpm): 142 SBP (mmHg): 189 DBP (mmHg): 52 METS: --- Stage: RECOVERY Duration (min): 0 min : 58 sec Speed (mph): 0.0 Grade (%): 0 HR (bpm): 122 SBP (mmHg): 191 DBP (mmHg): 50 METS: --- Stage: RECOVERY Duration (min): 1 min : 58 sec Speed (mph): 0.0 Grade (%): 0 HR (bpm): 99 SBP (mmHg): 191 DBP (mmHg): 50 METS: --- Stage: RECOVERY Duration (min): 2 min : 58 sec Speed (mph): 0.0 Grade (%): 0 HR (bpm): 80 SBP (mmHg): 185 DBP (mmHg): 59 METS: --- Stage: RECOVERY Duration (min): 3 min : 58 sec Speed (mph): 0.0 Grade (%): 0 HR (bpm): --- SBP (mmHg): 185 DBP (mmHg): 59 METS: --- Stage: RECOVERY Duration (min): 4 min : 10 sec Speed (mph): 0.0 Grade (%): 0 HR (bpm): --- SBP (mmHg): 185 DBP (mmHg): 59 METS: --- Rest HR: 67 bpm Peak HR: 142 bpm Rest Sys BP: 122 mmHg Peak Sys BP: 191 mmHg Max Pred HR: 156 bpm % Max Pred HR: 91 % Target HR: 133 bpm Max RPP:
== END 2022-09-30 09:38 | disposition home or self-care (01) ==
LOC: ANHCARD 09:38
PROVIDERS: PCP Family Medicine; Visit Provider Nurse Practitioner Family
DX: R07.89 Other chest pain (principal)
CPT/HCPCS: 93017

== ENCOUNTER 2023-05-28 13:39 | Outpatient (CLI) | payer MEDICARE, SELFPAY ==
--- NOTE | ~2023-05-28 | DEXA_ITS ---
Bone Density Report Name: CLINT PRICE Age: 67 Sex: Female Ethnicity: White Date of : 1955 Indication: postmenopausal; screening for osteoporosis; height loss; inflammatory bowel disease; hysterectomy; Referring Provider: PHILIP NICOLAS Study: Bone densitometry was performed. Exam Date: May 28, 2023 Accession number: [id number] Bone Density: Region BMD T-score Z-score Classification AP Spine(L1-L4) 1.307 2.4 4.2 Normal Femoral Neck (Left) 0.828 -0.2 1.4 Normal Total Hip (Left) 1.012 0.6 1.8 Normal Femoral Neck (Right) 0.792 -0.5 1.0 Normal Total Hip (Right) 1.032 0.7 2.0 Normal Total Hip Mean 1.022 0.7 1.9 Normal World Health Organization criteria for BMD impression classify patients as: Normal (T-score at or above -1.0), Osteopenia (T-score between -1.0 and -2.5), or Osteoporosis (T-score at or below -2.5). 10-year Fracture Risk: FRAX not reported because: All T-scores for Spine Total, Hip Total, Femoral Neck at or above -1.0 Previous Exams: Region Exam Age BMD T-score BMD Change BMD Change Date g/cm2 vs Baseline vs Previous Total Hip(Left) 05/28/2023 67 1.012 0.6 0.020 (2.0%) 0.020 (2.0%) 12/07/2020 65 0.992 0.4 Total Hip(Right) 05/28/2023 67 1.032 0.7 0.113 (12.3%)* 0.113 (12.3%)* 12/07/2020 65 0.919 -0.2 *Denotes significance at 95% confidence level, LSC for Total Hip = 0.027 g/cm2 Clinical Information Provided by Patient: Has used the following medications: Vitamin D Has the following medical conditions: Inflammatory bowel diseases, Hysterectomy Patient maximum height was 69.75 Menopause Age: 43 Drinks caffeinated beverages Onset of menses at age 15 Number of children 2 Impression: The patient has normal bone mass. No significant bone loss was observed. Discussion: BONE DENSITY IS ABOVE THE MINIMUM DESIRABLE LEVEL AT ALL SKELETAL SITES TESTED. This patient?s bone mineral density is above the minimum desirable level (T-score -1.0 or better) at all sites measured. The patient should follow a healthful lifestyle (good nutrition with adequate calcium and vitamin D, and appropriate weight-bearing exercise). Follow-Up: Consider repeating this study in 5 years or sooner if there is some new clinical indication. Reported by: JUNE on 05/28/2023 2:03:00 PM. Reviewed, dictated and finalized at location APatrice DEUTSCH
--- NOTE | ~2023-05-28 | MM_ITS ---
EXAMINATION: MM screening buddy BI w deonna HISTORY: Screening mammogram TECHNIQUE: Craniocaudal and mediolateral oblique 3-D tomosynthesis images were obtained and synthetic 2-D images were generated. CAD analysis was submitted and interpreted. COMPARISON: 03/26/2022, 12/07/2020 bilateral screening mammogram examinations BREAST PARENCHYMAL COMPOSITION: FINDINGS: There is no evidence of suspicious mass, calcification, or architectural distortion to sugg est malignancy in either breast. There has been no suspicious interval change. IMPRESSION: 1. No mammographic evidence of malignancy. 2. Recommend routine screening mammography in one year. BI-RADS Category 1: Negative Reviewed, dictated and finalized at location A. TER ENGINEERING
== END 2023-05-28 13:40 | disposition home or self-care (01) ==
PROVIDERS: PCP Family Medicine; Visit Provider Nurse Practitioner Family
DX: Z12.31 Encounter for screening mammogram for malignant neoplasm of breast (principal); Z78.0 Asymptomatic menopausal state
CPT/HCPCS: 77063; 77067; 77080

== ENCOUNTER 2023-09-03 11:07 | Outpatient (CLI) | payer MEDICARE, SELFPAY ==
[2023-09-03 19:12] LABS: Basophils Absolute Auto 0.1 K/mm3 (0.0-0.1); Basophils Percent Auto 0.7 % (0.2-1.2); Eosinophils Absolute Auto 0.4 K/mm3 (0-0.3); Eosinophils Percent Auto 5.3 % (0-4.4); Hematocrit 40.6 % (37.0-47.0); Immature Granulocyte Absolute 0.01 K/mm3 (0.00-0.031); Immature Granulocyte Percent A 0.1 % (0-0.5); Lymphocytes Absolute Auto 2.26 K/mm3 (0.9-3.2); Lymphocytes Percent Auto 33.4 % (18.3-44.2); Mean Corpuscular HGB Conc 29.6 g/dl (32-36); Mean Corpuscular Hemoglobin 24.7 pg (26-34); Mean Corpuscular Volume 83.7 fl (80-100); Mean Platelet Volume 12.1 fl (7.4-10.4); Monocytes Absolute Auto 0.7 K/mm3 (0.1-0.6); Monocytes Percent Auto 10.6 % (2.6-8.5); Neutrophils Absolute Auto 3.4 K/mm3 (1.3-6.7); Neutrophils Percent Auto 49.9 % (45.5-73.1); Platelet Count Result 210 k/mm3 (150-375); Red Blood Count 4.85 M/mm3 (4.2-5.4); Red Cell Distribution Width 18.3 % (11.5-14.5); White Blood Count 6.8 K/mm3 (4.5-10.0)
[2023-09-03 19:56] LABS: Alanine Aminotransferase 20 U/L (6-35); Albumin Level 4.2 g/dL (3.5-5.1); Alkaline Phosphatase 141 U/L (38-126); Anion Gap 4 mmol/L (4-12); Aspartate Amino Transferase 36 U/L (14-36); Bilirubin,Total 0.9 mg/dL (0.2-1.3); Blood Urea Nitrogen 14 mg/dL (7-17); Calcium 9.3 mg/dL (8.4-10.2); Carbon Dioxide 30 mmol/L (22-30); Chloride 106 mmol/L (98-107); Cholesterol 153 mg/dL (0-200); Estimated Glomerular Filt Rate > 60; Glucose 98 mg/dL (65-110); HDL Direct 60 mg/dL; Potassium 4.7 mmol/L (3.4-5.0); Sodium 140 mmol/L (137-145); Triglycerides 64 mg/dL (<150)
[2023-09-03 20:06] LABS: LDL Cholesterol Direct 76 mg/dL
[2023-09-03 20:20] LABS: Anisocytosis 2+; Hypochromasia 1+; Platelet Estimate Adequate (Adequate); Schistocytes Rare
[2023-09-03 20:43] LABS: Hemoglobin A1C 5.5 % (<5.7)
== END 2023-09-03 11:08 | disposition home or self-care (01) ==
PROVIDERS: PCP Family Medicine; Visit Provider Nurse Practitioner Family
DX: E78.5 Hyperlipidemia, unspecified (principal); G25.0 Essential tremor; I10 Essential (primary) hypertension; K21.9 Gastro-esophageal reflux disease without esophagitis; R73.03 Prediabetes; Z13.29 Encounter for screening for other suspected endocrine disorder
CPT/HCPCS: 36415; 80053; 80061; 83036; 84443; 85025

== ENCOUNTER 2024-03-10 10:50 | Outpatient (CLI) | payer MEDICARE, SELFPAY ==
[2024-03-10 18:47] LABS: Basophils Absolute Auto 0.1 K/mm3 (0.0-0.1); Basophils Percent Auto 0.8 % (0.2-1.2); Eosinophils Absolute Auto 0.3 K/mm3 (0-0.3); Eosinophils Percent Auto 4.2 % (0-4.4); Hematocrit 37.9 % (37.0-47.0); Hemoglobin 11.2 g/dL (12.0-15.0); Immature Granulocyte Absolute 0.01 K/mm3 (0.00-0.031); Immature Granulocyte Percent A 0.1 % (0-0.5); Lymphocytes Absolute Auto 2.48 K/mm3 (0.9-3.2); Lymphocytes Percent Auto 35.1 % (18.3-44.2); Mean Corpuscular HGB Conc 29.6 g/dl (32-36); Mean Corpuscular Hemoglobin 24.5 pg (26-34); Mean Corpuscular Volume 82.8 fl (80-100); Mean Platelet Volume 12.4 fl (7.4-10.4); Monocytes Absolute Auto 0.7 K/mm3 (0.1-0.6); Monocytes Percent Auto 10.5 % (2.6-8.5); Neutrophils Absolute Auto 3.5 K/mm3 (1.3-6.7); Neutrophils Percent Auto 49.3 % (45.5-73.1); Platelet Count Result 235 k/mm3 (150-375); Red Blood Count 4.58 M/mm3 (4.2-5.4); White Blood Count 7.1 K/mm3 (4.5-10.0)
[2024-03-10 19:02] LABS: Alanine Aminotransferase 21 U/L (6-35); Alkaline Phosphatase 141 U/L (38-126); Anion Gap 4 mmol/L (4-12); Aspartate Amino Transferase 37 U/L (14-36); Bilirubin,Total 0.7 mg/dL (0.2-1.3); Blood Urea Nitrogen 16 mg/dL (7-17); Calcium 9.5 mg/dL (8.4-10.2); Carbon Dioxide 32 mmol/L (22-30); Chloride 105 mmol/L (98-107); Cholesterol 149 mg/dL (0-200); Estimated Glomerular Filt Rate 55; Glucose 93 mg/dL (65-110); HDL Direct 61 mg/dL; Potassium 4.5 mmol/L (3.4-5.0); Sodium 141 mmol/L (137-145); Triglycerides 53 mg/dL (<150)
[2024-03-10 19:13] LABS: LDL Cholesterol Direct 56 mg/dL
[2024-03-10 19:27] LABS: Platelet Estimate Adequate (Adequate); Schistocytes None Seen
[2024-03-10 19:28] LABS: Anisocytosis 2+; Hypochromasia 1+
[2024-03-10 19:31] LABS: Vitamin D 25 Hydroxy 36.4 ng/mL
[2024-03-10 20:43] LABS: Free T4 Free Thyroxine Reflex 1.09 ng/dL (0.78-2.19)
[2024-03-10 20:57] LABS: Hemoglobin A1C 5.8 % (<5.7)
[2024-03-10 21:32] LABS: Total Triiodothyronine (T3) 1.74 NG/ML (0.97-1.69)
== END 2024-03-10 10:51 | disposition home or self-care (01) ==
LOC: ANHGOSHLAB 10:51
PROVIDERS: PCP Family Medicine; Visit Provider Family Medicine
DX: E53.8 Deficiency of other specified B group vitamins (principal); I10 Essential (primary) hypertension; R73.03 Prediabetes; E78.5 Hyperlipidemia, unspecified; E55.9 Vitamin D deficiency, unspecified; G25.0 Essential tremor
CPT/HCPCS: 36415; 80053; 80061; 82306; 82607; 83036; 84439; 84443; 84480; 85025

== ENCOUNTER 2024-07-29 09:32 | Outpatient (CLI) | payer MEDICARE, SELFPAY ==
--- NOTE | ~2024-07-29 | MM_ITS ---
EXAMINATION: MM screening buddy BI w deonna HISTORY: Screening TECHNIQUE: Craniocaudal and mediolateral oblique 3-D tomosynthesis images were obtained and synthetic 2-D images were generated. CAD analysis was submitted and interpreted. COMPARISON: Comparison to multiple prior studies sequentially, with oldest reviewed study dated 06/18. BREAST PARENCHYMAL COMPOSITION: Dense: The breasts are heterogeneously dense, which may obscure small masses FINDINGS: There is no evidence of suspicious mass, calcification, or architectural distortion to sugg est malignancy in either breast. There has been no suspicious interval change. IMPRESSION: 1. No mammographic evidence of malignancy. 2. Recommend routine screening mammography in one year. BI-RADS Category 1: Negative Reviewed, dictated and finalized at location A.
--- OUTSIDE RECORDS SUMMARY | 2024-07-29 09:51 | XMS_ITS | Clinical Summary ---
Author Organization [facility] Address [address] [place] [address] Care Team Providers Care Drywall Hanger Helper Name Role Phone Cristian Wilkins MD Primary Care Provider [phone] Source Comments [facility],non-owned Affiliates and Associated Physician Practices is amultiple site organization consisting of ambulatory clinics and hospital sitesin [place], [place], [place] and [place]. This disclosure is being madepursuant to the Care Everywhere program and may not contain all information available regarding this patient. Last updated 17.[facility] Allergies Active Allergy Reactions Criticality Noted Date Comments Erythromycin Unknown 09/09/2017 Penicillins Itching 09/09/2017 Medications * Be aware that medications may not be up to date on this document. Alwaysverify current medications with the patient. atorvastatin (LIPITOR) 20 MG tablet Take 20 mg by mouth at bedtime Active omeprazole (PRILOSEC) 20 MG capsule Take 20 mg by mouth daily before breakfast Active losartan (COZAAR) 100 MG tablet Take 100 mg by mouth once daily Active [place]-3 Fatty Acids (OMEGA-3 FISH OIL) 1000 MG capsule Take 1,000 mg by mouth 3 times daily with meals Active Vit-Fe Fumarate-FA (M-VIT) TABS Active loratadine (CLARITIN) 10 MG tablet Take 10 mg by mouth once daily Active Active Problems Problem Noted Date Diagnosed Date Chronic hepatitis C without hepatic coma 018 Social History Tobacco Use Types Packs/Day Years Used Date Smoking Tobacco: Never Smokeless Tobacco: Never Alcohol Use Standard Drinks/Week Comments Yes 0 (1 standard drink = 0.6 oz pure alcohol) maybe 3 drinks once or twice per month. Comments Unknown Sex and Gender Information Value Date Recorded Sex Assigned at Not on file Legal Sex Female 5:57 PM CDT Gender Identity Not on file Sexual Orientation Not on file Last Filed Vital Signs Vital Sign Reading Time Taken Comments Blood Pressure 120/57 10/06/2017 7:58 AM CDT Pulse 62 10/06/2017 7:58 AM CDT Temperature 36.5 C (97.7 F) 10/06/2017 7:58 AM CDT Respiratory Rate - - Oxygen Saturation 99% 10/06/2017 7:58 AM CDT Inhaled Oxygen Concentration - - Weight 88 kg (194 lb) 10/06/2017 7:58 AM CDT Height 176.5 cm (5' 9.5 ) 10/06/2017 7:58 AM CDT Body Mass Index 28.24 10/06/2017 7:58 AM CDT Plan of Treatment Health Maintenance Due Date Last Done Comments BONE DENSITY TESTING 1955 COLOGUARD (AGES 45-75) - COLON CA SCREENING 1955 COLON MONITORING 1955 COLONOSCOPY - COLON CA SCREENING 1955 CT COLONOGRAPHY - COLON CA SCREENING 1955 Colorectal Cancer Screening 1955 FIT - COLON CA SCREENING 1955 FLEX SIG - COLON CA SCREENING 1955 MAMMOGRAM 1955 DTAP/TDAP/TD VACCINES (1 - Tdap) 1976 PNEUMOCOCCAL VACCINE 50+ (1 of 1 - PCV) 10/21/2007 ZOSTER VACCINE (1 of 2) 10/21/2007 SCREENING FOR DIABETES 09/09/2020 09/09/2017 COVID-19 VACCINE (1 - season) 2023 DEPRESSION SCREENING 03/24/2024 INFLUENZA VACCINE (Season Ended) 2024 Respiratory Syncytial Virus (RSV) Vaccine Pt: or over 60 yrs (1 - 1-dose 75+ series) 2032 HEPATITIS C SCREENING Completed 10/06/2017 , 09/09/2017, 09/09/2017, Additional history exists HEPATITIS B VACCINE Aged Out No longe r eligible based on patient's age to complete this topic HIB VACCINE Aged Out No longer eligi ble based on patient's age to complete this topic HPV VACCINE Aged Out No longer eligi ble based on patient's age to complete this topic MENINGOCOCCAL (Group B) VACCINE SHARED DECISION-MAKING Aged Out No longer eligible based on patient's age to complete this topic MENINGOCOCCAL GROUPS A/C/Y/W VACCINE Aged Out No longer eligible based on patient's age to complete this topic Procedures Procedure Name Priority Date/Time Associated Diagnosis Comments COMPREHENSIVE METABOLIC PANEL Routine 09/09/2017 12:45 PM CDT Chronic hepatitis C without hepatic coma HEPATITIS C RNA QUANTITATIVE Routine 09/09/2017 12:45 PM CDT Chronic hepatitis C without hepatic coma from Last 3 Months or Most Recently Relevant to Health Maintenance Results * HEPATITIS C RNA QUANTITATIVE PCR (09/09/2017 12:45 PM CDT) Hepatitis C RNA PCR, Interp Not Detected Not Detected 09/12/2017 8:29 AM CDT [facility] Blood BLOOD SPECIMEN / Unknown Lab Venipuncture / Unknown 09/09/2017 12:45 PM CDT 09/09/2017 1:17 PM CDT Narrative [facility] - 09/12/2017 8:29 AM CDT The Hepatitis C viral (HCV) RNA analysis utilized a serum sample, real-time reverse bag filler PCR, and is reported as Not Detected, Detected (<12 IU/mL), Quantity (IU/mL) or >100,000,000 IU/mL. The limit of quantitation of the assay is 12 IU/mL (100% of samples with this HCV RNA level were detected). The linear range is from 12 IU/mL to 100,000,000 IU/mL. Values less than 12 IU/mL are reported as Detected (<12 IU/mL). Values greater than 100,000,000 IU/mL are reported as > 100,000,000 IU/mL. The detection/quantitation of HCV RNA in serum is based on the isolation of HCV RNA with reverse bag filler of genomic HCV RNA followed by real-time PCR in the presence of an unrelated RNA internal control. The internal control ensures that RNA is isolated, and that no general significant inhibitors of the RT-PCR process are present. The analysis was performed using a [employer] FDA approved test methodology ([employer] Real Time HCV). us Goldy Roberson MD LAB - CHEMISTRY ORDERABLES Justine areli Result [facility] [address] [facility] [place] [address], [facility] [phone] * COMPREHENSIVE METABOLIC PANEL (09/09/2017 12:[address] [facility]) BUN 10 7 - 26 mg/dL 09/09/2017 1:41 PM [facility] Creatinine 0.9 0.6 - 1.2 mg/dL 09/09/2017 1:41 PM [facility] Sodium 142 136 - 145 mmol/L 09/09/2017 1:41 PM [facility] Potassium 4.2 3.5 - 4.5 mmol/L 09/09/2017 1:41 PM [facility] Chloride 104 98 - 107 mmol/L 09/09/2017 1:41 PM [facility] CO2 29 22 - 29 mmol/L 09/09/2017 1:41 PM [facility] Glucose 97 70 - 115 mg/dL 09/09/2017 1:41 PM [facility] Calcium 10.0 8.4 - 10.2 mg/dL 09/09/2017 1:41 PM [facility] Protein Total 7.4 6.0 - 8.3 g/dL 09/09/2017 1:41 PM [facility] Albumin 3.8 3.4 - 5.0 g/dL 09/09/2017 1:41 PM [facility] Bilirubin Total 0.9 0.2 - 1.2 mg/dL 09/09/2017 1:41 PM [facility] Alkaline Phosphatase 138 40 - 150 Units/L 09/09/2017 1:41 PM [facility] ALT 20 0 - 55 Units/L 09/09/2017 1:41 PM [facility] AST 19 5 - 34 Units/L 09/09/2017 1:41 PM [facility] Anion Gap 13 8 - 18 09/09/2017 1:41 PM [facility] BUN/Creatinine Ratio 11 7 - 23 09/09/2017 1:41 PM CDT [facility] Osmolality Calculated 293 270 - 300 mOsm/kg 09/09/2017 1:41 PM CDT [facility] Albumin/Globulin Ratio 1.1 1.1 - 2.3 09/09/2017 1:41 PM CDT [facility] eGFR >60 >60 mL/min/1.7 3 m2 09/09/2017 1:41 PM CDT [facility] Blood BLOOD SPECIMEN / Unknown Lab Venipuncture / Unknown 09/09/2017 12:45 PM CDT 09/09/2017 1:14 PM CDT us Goldy Roberson MD LAB - CHEMISTRY ORDERABLES Justine singleton Result [facility] [address] [place] [address] from Last 3 Months or Most Recently Relevant to Health Maintenance Insurance [employer] Care Teams Drywall Hanger Helper Relationship Specialty Start Date End Date Cristian Wilkins MD [address] [place] [address] PCP - General 09/05/17
== END 2024-07-29 09:33 | disposition home or self-care (01) ==
PROVIDERS: PCP Family Medicine; Visit Provider Family Medicine
DX: Z12.31 Encounter for screening mammogram for malignant neoplasm of breast (principal)
CPT/HCPCS: 77063; 77067

== ENCOUNTER 2024-08-30 08:49 | Outpatient (CLI) | payer MEDICARE, SELFPAY ==
--- NOTE | 2024-08-30 08:58 | ECHO_ITS ---
Patient Info Name: Laverne Garcia Age: 68 years : 1955 Gender: Female Ht: 69 in Wt: 190 lbs BSA: 2.07 m2 HR: 64 bpm BP: 110 / 85 mmHg Technical Quality: Good Exam Date: 08/30/2024 9:04 AM Patient Status: O Admit Date: 08/30/2024 Exam Type: CA echo doppler color flow Complete two-dimensional, color flow and Doppler transthoracic echocardiogram is performed. Car Wash Manager: Amaya House Attending Provider: Travis Lindsey DO Summary 1. Complete two-dimensional, color flow and Doppler transthoracic echocardiogram is performed. 2. Left ventricular chamber dimension is normal. 3. Left ventricular systolic function is normal, estimated at 65-70. 4. The left ventricular diastolic function is abnormal. 5. Global longitudinal strain is normal at -23.3%. 6. E/e' 10 is mildly elevated. 7. There is mild aortic valve sclerosis. 8. There is mild aortic valve regurgitation. 9. There is mild mitral valve regurgitation. 10. No pulmonary hypertension, estimated pulmonary arterial systolic pressure is 31 mmHg. Left Ventricle E/e' 10 is mildly elevated. Left ventricular chamber dimension is normal. Left ventricular systolic function is normal, estimated at 65-70. The left ventricular diastolic function is abnormal. Global longitudinal strain is normal at -23.3%. Right Ventricle Right ventricular chamber dimension is normal. Right ventricular systolic function is normal and with normal TAPSE 2.3 cm. Left Atria Left atrial chamber dimension is mildly enlarged. Right Atria Right atrial chamber dimension is normal. Aortic Valve The aortic valve is trileaflet. There is mild aortic valve sclerosis. There is no aortic valve stenosis. There is mild aortic valve regurgitation. Pulmonic Valve There is no pulmonic regurgitation. Mitral Valve There is no mitral valve stenosis. There is mild mitral valve regurgitation. Tricuspid Valve There is no tricuspid valve regurgitation. No pulmonary hypertension, estimated pulmonary arterial systolic pressure is 31 mmHg. Pericardium/Pleural There is no pericardial effusion. Inferior Vena Cava Normal inferior vena cava with >50% collapse upon inspiration consistent with normal right atrial pressure, 5 mmHg. Aorta The aortic root size at the sinus of Valsalva is normal. Left Ventricular Outflow Tract Name Value Normal LVOT 2D LVOT Diameter 1.9 cm LVOT Doppler LVOT Peak Velocity 137 cm/s LVOT Peak Gradient 8 mmHg LVOT Mean Gradient 3 mmHg LVOT VTI 31 cm LVOT VTI/AV VTI Ratio 0.9 LVOT Stroke Volume 85 ml LVOT CO 4.2 l/min LVOT CI 2.0 l/min/m2 Pulmonic Valve Name Value Normal RVOT Doppler RVOT Peak Velocity 74 cm/s RVOT Peak Gradient 2 mmHg PV Doppler PV Peak Velocity 94 cm/s PV Peak Gradient 4 mmHg Mitral Valve Name Value Normal MV Regurgitation Doppler MR Peak Gradient 122 mmHg MV Diastolic Function MV E Peak Velocity 113 cm/s MV A Peak Velocity 57 cm/s MV E/A 2.0 MV Decel Time (PW) 260 ms Tricuspid Valve Name Value Normal TV Regurgitation Doppler TR Peak Velocity 253 cm/s TR Peak Gradient 26 mmHg Estimated PAP/RSVP RA Pressure 5 mmHg <=5 PA Systolic Pressure 31 mmHg <36 RV Systolic Pressure 31 mmHg <36 TV Annular TDI TV Lateral Diane s' Velocity 13.9 cm/s >=9.5 Aorta Name Value Normal Ascending Aorta Ao Root Diameter (MM) 2.5 cm Ao Root Diam Index (MM) 1.2 cm/m2 Aortic Valve Name Value Normal AV Doppler AV Peak Velocity 153 cm/s AV Peak Gradient 9 mmHg AV Mean Gradient 5 mmHg AV VTI 34 cm AV Area (Cont Eq VTI) 2.5 cm2 >=3.0 AV Area (Cont Eq Sherif) 2.5 cm2 AV DI (Sherif) 0.90 AV Regurgitation 2D LVOT Area 2.7 cm2 Ventricles Name Value Normal LV Dimensions 2D/MM IVS Diastolic Thickness (2D) 0.6 cm 0.6-1.0 IVS Diastole Thickness (MM) 0.7 cm 0.6-0.9 LVID Diastole (2D) 3.8 cm 3.8-5.2 LVID Diastole (MM) 5.7 cm 3.8-5.2 LVIW Diastolic Thickness (2D) 0.5 cm 0.6-0.9 LVIW Diastolic Thickness (MM) 0.8 cm 0.6-0.9 LVID Systole (2D) 2.1 cm 2.2-3.5 LVID Systole (MM) 2.4 cm 2.2-3.5 LVOT Diameter 1.9 cm LV Mass (2D Cubed) 53.31 g 67.00-162.00 LV Mass Index (2D Cubed) 26 g/m2 43-95 Relative Wall Thickness (2D) 0.28 <=0.42 LV Mass (MM Cubed) 161.03 g 67.00-162.00 LV Mass Index (MM Cubed) 78 g/m2 43-95 Relative Wall Thickness (MM) 0.28 LV Fractional Shortening/Ejection Fraction 2D/MM LV Fractional Shortening (2D) 44 % 27-45 LV Fractional Shortening (MM) 58 % 27-45 LV EF (MM Teichholz) 88 % LV EF (2D Teichholz) 76 % LV Diastolic Volume (4C MOD) 89 ml LV EF (4C MOD) 75 % LV Diastolic Volume (2C MOD) 79 ml LV EF (2C MOD) 68 % LV Diastolic Volume (BP MOD) 83 ml 46-106 LV Diastolic Volume Index (BP MOD) 40 ml/m2 29-61 LV Systolic Volume (BP MOD) 25 ml 14-42 LV Systolic Volume Index (BP MOD) 12 ml/m2 8-24 LV EF (BP MOD) 70 % 54-74 LV Diastolic Length (4C) 7.8 cm LV Systolic Length (4C) 6.8 cm LV Stroke Volume (4C MOD) 66 ml Atria Name Value Normal LA Dimensions LA Dimension (MM) 3.2 cm 2.7-3.8 LA Volume (4C A-L) 64 ml LA Volume (BP A-L) 60 ml RA Dimensions RA Systolic Major [place] Length (4C) 5.6 cm 2.2-2.8 RA Area (4C) 18.0 cm2 <=18.0 EchoPAC Name Value Normal AutoEF LVCO_BiP_Q (Cqmd3FBZ) 3.2 l/min LVEF_BiP_Q (Ujmf1XCG) 72 % LVSV_BiP_Q (Ofde6SAB) 65 ml LVVED_BiP_Q (Mqdk8CCO) 89 ml LVVES_BiP_Q (Asjq8VSV) 25 ml HR_4Ch_Q (Xuqz8VOM) 51 bpm LVCO_4Ch_Q (Uflb5QOF) 2.8 l/min LVEF_4Ch_Q (Pjbe7KEV) 74 % LVLd_4Ch_Q (Cqfk4JEE) 8.6 cm LVLs_4Ch_Q (Jhyl7QJW) 6.9 cm LVSV_4Ch_Q (Qnvu1REO) 56 ml LVVED_4Ch_Q (Whbp5HVY) 75 ml LVVES_4Ch_Q (Bbph4TVF) 19 ml HR_2Ch_Q (Liqm4PKC) 50 bpm LVCO_2Ch_Q (Ztuu6ZBV) 3.6 l/min LVEF_2Ch_Q (Hulr6RJP) 69 % LVLd_2Ch_Q (Xsjs1GZF) 7.9 cm LVLs_2Ch_Q (Yuhw4EBW) 6.3 cm LVSV_2Ch_Q (Pcdv2KEN) 73 ml LVVED_2Ch_Q (Whly7DIW) 106 ml LVVES_2Ch_Q (Dgfj9KPJ) 33 ml BRANDON LV Apical Anterior Longitudinal Strain (BRANDON) -28.1 % LV Apical Anteroseptal Longitudinal Strain (BRANDON) -30.1 % LV Apical Inferior Longitudinal Strain (BRANDON) -28.2 % LV Apical Lateral Longitudinal Strain (BRANDON) -22.5 % LV Apical Posterior Longitudinal Strain (BRANDON) -17.9 % LV Apical Septal Longitudinal Strain (BRANDON) -27.7 % AV Closure (BRANDON) 416 ms LV Basal Anterior Longitudinal Strain (BRANDON) -18.2 % LV Basal Anteroseptal Longitudinal Strain (BRANDON) -15.1 % LV Basal Inferior Longitudinal Strain (BRANDON) -21.2 % LV Basal Anterolateral Longitudinal Strain (BRANDON) -24.8 % LV Basal Inferolateral Longitudinal Strain (BRANDON) -27.7 % LV Basal Inferoseptal Longitudinal Strain (BRANDON) -14.4 % LV Global Longitudinal Strain (2C BRANDON) -22.8 % LV Global Longitudinal Strain (4C BRANDON) -23.3 % LV Global Longitudinal Strain (APLAX BRANDON) -24.1 % LV Global Longitudinal Strain (BRANDON) -23.4 % LV Mid Anterior Longitudinal Strain (BRANDON) -24.7 % LV Mid Anteroseptal Longitudinal Strain (BRANDON) -30.6 % LV Mid Inferior Longitudinal Strain (BRANDON) -18.7 % LV Mid Anterolateral Longitudinal Strain (BRANDON) -25.9 % LV Mid Inferolateral Longitudinal Strain (BRANDON) -23.4 % LV Mid Inferoseptal Longitudinal Strain (BRANDON) -22.4 % Report Signatures
--- OUTSIDE RECORDS SUMMARY | 2024-08-30 09:15 | XMS_ITS | Clinical Summary ---
Author Organization [facility] [employer] Address [address] [place] [address] Care Team Providers Care Supervisor Coil Winding Name Role Phone Cristian Wilkins MD Primary Care Provider [phone] Source Comments [facility] [employer],non-owned Affiliates and Associated Physician Practices is amultiple site organization consisting of ambulatory clinics and hospital sitesin [place], [place], [place] and [place]. This disclosure is being madepursuant to the Care Everywhere program and may not contain all information available regarding this patient. Last updated 17.[facility] [employer] Allergies Active Allergy Reactions Criticality Noted Date [...] 100 mg by mouth once daily Active [place]-3 Fatty Acids (OMEGA-3 FISH OIL) 1000 MG [...] 7:58 AM CDT Height 176.5 cm (5' 9.5) 10/06/2017 7:58 AM CDT Body Mass Index [...] Detected Not Detected 09/12/2017 8:29 AM CDT [facility] Blood BLOOD SPECIMEN / Unknown Lab Venipuncture / Unknown 09/09/2017 12:45 PM CDT 09/09/2017 1:17 PM CDT Narrative [facility] - 09/12/2017 8:29 AM CDT The Hepatitis C viral (HCV) RNA analysis utilized a serum sample, real-time reverse director physical PCR, and is reported as Not Detected, [...] the isolation of HCV RNA with reverse director physical of genomic HCV RNA followed by real-time PCR in the presence of an unrelated RNA internal control. The internal control ensures that RNA is isolated, and that no general significant inhibitors of the RT-PCR process are present. The analysis was performed using a HookitS. FDA approved test methodology (Splashup Real Time HCV). us Goldy Roberson MD LAB - CHEMISTRY ORDERABLES Justine areli Result [facility] [address] [facility] [place] [address], [facility] [phone] * COMPREHENSIVE METABOLIC PANEL (09/09/2017 12:45 PM [facility]) BUN 10 7 - 26 mg/dL 09/09/2017 1:41 PM [facility] Creatinine 0.9 0.6 - 1.2 mg/dL 09/09/2017 1:41 PM [facility] Sodium 142 136 - 145 mmol/L 09/09/2017 1:41 PM [facility] Potassium 4.2 3.5 - 4.5 mmol/L 09/09/2017 1:41 PM [facility] Chloride 104 98 - 107 mmol/L 09/09/2017 1:41 PM [facility] CO2 29 22 - 29 mmol/L 09/09/2017 1:41 PM [facility] Glucose 97 70 - 115 mg/dL 09/09/2017 1:41 PM [facility] Calcium 10.0 8.4 - 10.2 mg/dL 09/09/2017 1:41 PM [facility] Protein Total 7.4 6.0 - 8.3 g/dL 09/09/2017 1:41 PM [facility] Albumin 3.8 3.4 - 5.0 g/dL 09/09/2017 1:41 PM [facility] Bilirubin Total 0.9 0.2 - 1.2 mg/dL 09/09/2017 1:41 PM [facility] Alkaline Phosphatase 138 40 - 150 Units/L 09/09/2017 1:41 PM [facility] ALT 20 0 - 55 Units/L 09/09/2017 1:41 PM [facility] AST 19 5 - 34 Units/L 09/09/2017 1:41 PM [facility] Anion Gap 13 8 - 18 09/09/2017 1:41 PM [facility] BUN/Creatinine Ratio 11 7 - 23 09/09/2017 1:41 PM CDT [facility] Osmolality Calculated 293 270 - 300 mOsm/kg 09/09/2017 1:41 PM CDT [facility] Albumin/Globulin Ratio 1.1 1.1 - 2.3 09/09/2017 1:41 PM CDT [facility] eGFR >60 >60 mL/min/1.7 3 m2 09/09/2017 1:41 PM CDT [facility] Blood BLOOD SPECIMEN / Unknown Lab Venipuncture / Unknown 09/09/2017 12:45 PM CDT 09/09/2017 1:14 PM CDT us Goldy Roberson MD LAB - CHEMISTRY ORDERABLES Justine singleton Result [facility] [address] [place] [address] from Last 3 Months or Most Recently Relevant to Health Maintenance Insurance [employer] Care Teams Supervisor Coil Winding Relationship Specialty Start Date End Date Cristian Wilkins MD [address] [place] [address] PCP - General 09/05/17
== END 2024-08-30 08:50 | disposition home or self-care (01) ==
PROVIDERS: PCP Family Medicine; Visit Provider Internal Medicine Cardiovascular Disease
DX: I47.19 Other supraventricular tachycardia (principal); I35.8 Other nonrheumatic aortic valve disorders; I08.0 Rheumatic disorders of both mitral and aortic valves
CPT/HCPCS: 93306

== ENCOUNTER 2024-09-13 12:32 | Outpatient (CLI) | payer MEDICARE, SELFPAY ==
[2024-09-13 19:54] LABS: Basophils Absolute Auto 0.1 K/mm3 (0.0-0.1); Basophils Percent Auto 1.1 % (0.2-1.2); Eosinophils Absolute Auto 0.4 K/mm3 (0-0.3); Eosinophils Percent Auto 5.8 % (0-4.4); Hematocrit 45.3 % (37.0-47.0); Hemoglobin 13.7 g/dL (12.0-15.0); Immature Granulocyte Absolute 0.02 K/mm3 (0.00-0.031); Immature Granulocyte Percent A 0.3 % (0-0.5); Lymphocytes Absolute Auto 2.63 K/mm3 (0.9-3.2); Lymphocytes Percent Auto 36.4 % (18.3-44.2); Mean Corpuscular HGB Conc 30.2 g/dl (32-36); Mean Corpuscular Hemoglobin 28.1 pg (26-34); Mean Corpuscular Volume 92.8 fl (80-100); Mean Platelet Volume 12.7 fl (7.4-10.4); Monocytes Absolute Auto 0.6 K/mm3 (0.1-0.6); Monocytes Percent Auto 8.6 % (2.6-8.5); Neutrophils Absolute Auto 3.5 K/mm3 (1.3-6.7); Neutrophils Percent Auto 47.8 % (45.5-73.1); Platelet Count Result 203 k/mm3 (150-375); Red Blood Count 4.88 M/mm3 (4.2-5.4); Red Cell Distribution Width 14.8 % (11.5-14.5); White Blood Count 7.2 K/mm3 (4.5-10.0)
[2024-09-13 20:17] LABS: Hemoglobin A1C 5.6 % (<5.7)
[2024-09-13 20:27] LABS: Alanine Aminotransferase 27 U/L (6-35); Albumin Level 4.1 g/dL (3.5-5.1); Alkaline Phosphatase 142 U/L (38-126); Anion Gap 7 mmol/L (4-12); Aspartate Amino Transferase 40 U/L (14-36); Blood Urea Nitrogen 11 mg/dL (7-17); Calcium 9.6 mg/dL (8.4-10.2); Carbon Dioxide 30 mmol/L (22-30); Chloride 103 mmol/L (98-107); Estimated Glomerular Filt Rate > 60; Glucose 88 mg/dL (65-110); Potassium 4.4 mmol/L (3.4-5.0); Sodium 140 mmol/L (137-145); Total Protein 7.1 g/dL (6.3-8.2)
== END 2024-09-13 12:33 | disposition home or self-care (01) ==
LOC: ANHGOSHLAB 12:32
PROVIDERS: PCP Family Medicine; Visit Provider Nurse Practitioner Family
DX: R73.03 Prediabetes (principal); I10 Essential (primary) hypertension
CPT/HCPCS: 36415; 80053; 83036; 85025

== ENCOUNTER 2025-03-15 13:43 | Outpatient (CLI) | payer MEDICARE, SELFPAY ==
--- OUTSIDE RECORDS SUMMARY | 2025-03-15 13:47 | XMS_ITS | Clinical Summary ---
Author Organization [facility] [employer] Address [address] [place] [address] Care Team Providers Care Moto Mix Operator Name Role Phone Cristian Wilkins MD Primary Care Provider [phone] Source Comments [facility] [employer],non-owned Affiliates and Associated Physician Practices is amultiple site organization consisting of ambulatory clinics and hospital sitesin [place], [place], [place] and [place]. This disclosure is being madepursuant to the Care Everywhere program and may not contain all information available regarding this patient. Last updated 17.[facility] [employer] Allergies Active Allergy Reactions Criticality Noted Date [...] 100 mg by mouth once daily Active [place]-3 Fatty Acids (OMEGA-3 FISH OIL) 1000 MG [...] 2) 10/21/2007 SCREENING FOR DIABETES 09/09/2020 09/09/2017 DEPRESSION SCREENING 03/24/2024 COVID-19 VACCINE (1 - 2024- season) 2024 INFLUENZA VACCINE (#1) 2024 Respiratory Syncytial Virus (RSV) Vaccine Pt: [...] Detected Not Detected 09/12/2017 8:29 AM CDT [facility] Blood BLOOD SPECIMEN / Unknown Lab Venipuncture / Unknown 09/09/2017 12:45 PM CDT 09/09/2017 1:17 PM CDT Narrative [facility] - 09/12/2017 8:29 AM CDT The Hepatitis C viral (HCV) RNA analysis utilized a serum sample, real-time reverse supervisor maintenance PCR, and is reported as Not Detected, [...] the isolation of HCV RNA with reverse supervisor maintenance of genomic HCV RNA followed by real-time PCR in the presence of an unrelated RNA internal control. The internal control ensures that RNA is isolated, and that no general significant inhibitors of the RT-PCR process are present. The analysis was performed using a Terra TechS. FDA approved test methodology (WeFi Real Time HCV). us Goldy Roberson MD LAB - CHEMISTRY ORDERABLES Justine areli Result [facility] [address] [facility] [place] [address], [facility] [phone] * COMPREHENSIVE METABOLIC PANEL (09/09/2017 12:45 PM [facility]) BUN 10 7 - 26 mg/dL 09/09/2017 1:41 PM [facility] Creatinine 0.9 0.6 - 1.2 mg/dL 09/09/2017 1:41 PM [facility] Sodium 142 136 - 145 mmol/L 09/09/2017 1:41 PM [facility] Potassium 4.2 3.5 - 4.5 mmol/L 09/09/2017 1:41 PM [facility] Chloride 104 98 - 107 mmol/L 09/09/2017 1:41 PM [facility] CO2 29 22 - 29 mmol/L 09/09/2017 1:41 PM [facility] Glucose 97 70 - 115 mg/dL 09/09/2017 1:41 PM [facility] Calcium 10.0 8.4 - 10.2 mg/dL 09/09/2017 1:41 PM [facility] Protein Total 7.4 6.0 - 8.3 g/dL 09/09/2017 1:41 PM [facility] Albumin 3.8 3.4 - 5.0 g/dL 09/09/2017 1:41 PM [facility] Bilirubin Total 0.9 0.2 - 1.2 mg/dL 09/09/2017 1:41 PM [facility] Alkaline Phosphatase 138 40 - 150 Units/L 09/09/2017 1:41 PM [facility] ALT 20 0 - 55 Units/L 09/09/2017 1:41 PM [facility] AST 19 5 - 34 Units/L 09/09/2017 1:41 PM [facility] Anion Gap 13 8 - 18 09/09/2017 1:41 PM [facility] BUN/Creatinine Ratio 11 7 - 23 09/09/2017 1:41 PM CDT [facility] Osmolality Calculated 293 270 - 300 mOsm/kg 09/09/2017 1:41 PM CDT [facility] Albumin/Globulin Ratio 1.1 1.1 - 2.3 09/09/2017 1:41 PM CDT [facility] eGFR >60 >60 mL/min/1.7 3 m2 09/09/2017 1:41 PM CDT [facility] Blood BLOOD SPECIMEN / Unknown Lab Venipuncture / Unknown 09/09/2017 12:45 PM CDT 09/09/2017 1:14 PM CDT us Goldy Roberson MD LAB - CHEMISTRY ORDERABLES Justine singleton Result [facility] [address] [place] [address] from Last 3 Months or Most Recently Relevant to Health Maintenance Insurance [employer] [facility] Address: [facility] [id number] [place] [address] [employer] Care Teams Moto Mix Operator Relationship Specialty Start Date End Date Cristian Wilkins MD [address] [place] [address] PCP - General 09/05/17
[2025-03-15 18:26] LABS: Hematocrit 41.5 % (37.0-47.0); Hemoglobin 12.5 g/dL (12.0-15.0); Immature Granulocyte Percent A 0.3 % (0-0.5); Lymphocytes Absolute Auto 2.73 K/mm3 (0.9-3.2); Mean Corpuscular HGB Conc 30.1 g/dl (32-36); Mean Corpuscular Hemoglobin 26.4 pg (26-34); Mean Corpuscular Volume 87.7 fl (80-100); Nucleated Red Blood Cells Absolute Auto 0.000 K/mm3 (0.0-0.012); Nucleated Red Blood Cells Perc 0.0 % (0.0-0.2); Platelet Count Result 232 k/mm3 (150-375); Red Blood Count 4.73 M/mm3 (4.2-5.4); White Blood Count 7.3 K/mm3 (4.5-10.0)
[2025-03-15 18:44] LABS: Alanine Aminotransferase 24 U/L (6-35); Albumin Level 4.3 g/dL (3.5-5.1); Alkaline Phosphatase 159 U/L (38-126); Anion Gap 7 mmol/L (4-12); Aspartate Amino Transferase 43 U/L (14-36); Bilirubin,Total 0.9 mg/dL (0.2-1.3); Blood Urea Nitrogen 16 mg/dL (7-17); Calcium 9.7 mg/dL (8.4-10.2); Carbon Dioxide 29 mmol/L (22-30); Chloride 105 mmol/L (98-107); Cholesterol 159 mg/dL (0-200); Estimated Glomerular Filt Rate 58; Glucose 96 mg/dL (65-110); HDL Direct 73 mg/dL; Potassium 4.5 mmol/L (3.4-5.0); Sodium 141 mmol/L (137-145); Total Protein 7.3 g/dL (6.3-8.2); Triglycerides 58 mg/dL (<150)
[2025-03-15 19:16] LABS: Hemoglobin A1C 5.7 % (<5.7)
== END 2025-03-15 13:44 | disposition home or self-care (01) ==
LOC: ANHGOSHLAB 13:44
PROVIDERS: PCP Nurse Practitioner Family; Visit Provider Nurse Practitioner Family
DX: R73.03 Prediabetes (principal); I10 Essential (primary) hypertension; E78.5 Hyperlipidemia, unspecified
CPT/HCPCS: 36415; 80053; 80061; 83036; 85025